=== PATIENT | female | born 1955 | race Two or more races ===

== ENCOUNTER → 2016-10-13 | Outpatient (CLI) | payer MEDICARE, OTHER | LOC: WI 13:40 | PROVIDERS: ATTEND Internal Medicine Medical Oncology | DX: C50.912 Malignant neoplasm of unspecified site of left female breast (principal) | CPT/HCPCS: G0279; G0204; 77062; 77066 ==

== ENCOUNTER → 2016-10-21 | Outpatient (CLI) | payer MEDICARE, OTHER | LOC: WI 09:49 | PROVIDERS: ATTEND Internal Medicine Medical Oncology | DX: R92.2 Inconclusive mammogram (principal); N63 Unspecified lump in breast | CPT/HCPCS: 76642 ==

== ENCOUNTER → 2016-12-03 | Outpatient (CLI) | payer MEDICARE, OTHER ==
--- NOTE | 2016-12-08 09:08 | RADIOLOGY REPORT (SQ) ---
EXAM DESCRIPTION: MRI BREAST BILAT W AND/OR WO COMPLETED DATE/TIME: 12/03/2016 3:23 pm REASON FOR STUDY: ABNORMAL MAMMO R92.8 OTH ABN AND INCONCLUSIVE FINDINGS ON DX IMAGING OF ANI COMPARISON: Breast ultrasound 10/21/2016, 09/28/2012 Diagnostic tomosynthesis 10/13/2016 Mammograms 10/08/2015, 04/02/2014, 03/26/2013, 10/03/2012, 09/28/2012, 09/19/2012 PET-CT 01/17/2015 PATHOLOGIC CORRELATION: Prior stereotactic biopsy 10/03/2012 yielded a diagnosis of ductal carcinoma in situ and invasive ductal carcinoma CONTRAST TYPE AND DOSE: Unable to receive contrast due to renal insufficiency RENAL FUNCTION: Unable to receive contrast due to renal insufficiency TECHNIQUE: MR imaging performed with a dedicated breast coil. Pre contrast T1 and T2 weighted images . Pre contrast and post contrast enhanced T1 weighted images with fat saturation. Subtraction images, 3D thick and thin MIPS, and kinetic analysis performed on an independent workstat ion. ([employer] workstation) Magnet strength: 1.5 T LIMITATIONS: Unable to give contrast due to renal insufficiency FINDINGS: BREAST DENSITY: b. There are scattered areas of fibroglandular density. BACKGROUND PARENCHYMAL ENHANCEMENT:Not applicable RIGHT BREAST: No gross masses. CHEST WALL: Normal tissue planes. No abnormal internal mammary nodes. AXILLA: Normal axillary and retro-pectoral nodes. LEFT BREAST:In the left breast 7 cm from the nipple laterally, a small nodule is present, soft tissue signal on T1, bright on T2. This may represent a small fibroadenoma or intramammary lymph node, sue sures 6 mm in diameter and correlates with ultrasound 10/21/2016 and tomosynthesis exam 10/13/2016. By ultrasound, tomosynthesis, and MRI, this is a probably benign finding and six-month follow-up diagnos tic mammograms and ultrasound are recommended. Patient has postsurgical changes in the upper inner quadrant of the left breast, with punctate ferrom agnetic artifact and bandlike scarring which is similar compared to prior mammograms. CHEST WALL: Normal tissue planes. No abnormal internal mammary nodes. AXILLA: Normal axillary and retro-pectoral nodes. OTHER:No identified liver, bone, or lung lesions. No other significant incidental findings. IMPRESSION: Limited study. Unable to give contrast because of renal insufficiency. Probable small fibroadenoma or intramammary lymph node left breast 7 cm from the nipple laterally for which six-month follow-up diagnostic mammograms and ultrasound are recommended BIRAD: RIGHT BREAST: 1 Negative. LEFT BREAST: 3 Probably benign finding. Initial short-interval follow-up suggested. RECOMMENDATION: RECOMMENDED FOLLOW-UP: Left breast diagnostic mammograms and ultrasound in 6 months TECHNICAL DOCUMENTATION: JOB ID: [id number] [employer]- All Rights Reserved
== END ==
LOC: RAD 14:05
PROVIDERS: ATTEND Internal Medicine Medical Oncology
DX: R92.8 Other abnormal and inconclusive findings on diagnostic imaging of breast (principal)
CPT/HCPCS: 77059; C8906

== ENCOUNTER → 2017-01-06 | Outpatient (CLI) | payer MEDICARE, OTHER ==
--- NOTE | 2017-01-06 14:08 | RADIOLOGY REPORT (SQ) ---
EXAM DESCRIPTION: KUB COMPLETED DATE/TIME: 01/06/2017 1:50 pm REASON FOR STUDY: CHRONIC KIDNEY DISEASE, STAGE 5,UNSPEC ABDOMINAL PAIN N18.5 CHRONIC KIDNEY DISEAS E, STAGE 5 R10.9 UNSPECIFIED ABDOMINAL PAIN COMPARISON: PET-CT 01/17/[address] 03/16/2013 NUMBER OF VIEWS: One view. TECHNIQUE: Supine radiographic image of the abdomen acquired. LIMITATIONS: None. FINDINGS: BOWEL GAS PATTERN: Normal bowel gas pattern. No dilated loops. CALCIFICATIONS: No suspicious calcifications. SOFT TISSUES: No gross mass or suggestion of organomegaly. HARDWARE: Peritoneal dialysis catheter tip is coiled in the pelvic cul-de-sac BONES: No acute fracture. No worrisome bone lesions. OTHER: No other significant finding. IMPRESSION: NO RADIOGRAPHIC EVIDENCE FOR ACUTE ABDOMINAL DISEASE. TECHNICAL DOCUMENTATION: JOB ID: [id number] [employer]- All Rights Reserved
== END ==
LOC: OD 13:36
PROVIDERS: ATTEND Internal Medicine Nephrology
DX: N18.5 Chronic kidney disease, stage 5 (principal); R10.9 Unspecified abdominal pain
CPT/HCPCS: 74000

== ENCOUNTER 2017-01-18 05:35 | Day surgery (SDC) | payer MEDICARE, OTHER ==
[2017-01-18] MEDS ORDERED: BUPIVACAINE HCL 0.25 % INJ/PF (2.5 MG/1 ML) 30 ML VIAL ONE (06:29)
[2017-01-18] MEDS ORDERED: LIDOCAINE 0.5% INJ-PF (5 MG/ML) 50 ML SDV ONE (06:29)
[2017-01-18] MEDS ORDERED: BACITRACIN INJ 50,000 UNIT VIAL ONE (06:29)
[2017-01-18 06:41] LABS: HEMATOCRIT 30.2 % (36.0-47.0); HEMOGLOBIN 10.1 g/dL (12.0-15.5); HGB HCT DIFFERENCE 0.1; MEAN CORPUSCULAR HEMOGLOBIN 32.8 pg (27.0-33.4); MEAN CORPUSCULAR HGB CONC 33.4 g/dL (32.0-36.0); MEAN CORPUSCULAR VOLUME 98 fl (80-97); RED BLOOD COUNT 3.08 10^6/uL (3.72-5.28); RED CELL DISTRIBUTION WIDTH 17.5 % (11.5-14.0); WHITE BLOOD COUNT 7.3 10^3/uL (4.0-10.5)
[2017-01-18 06:51] LABS: ANION GAP 9 (5-19); BLOOD UREA NITROGEN 43 mg/dL (7-20); CALCIUM 9.1 mg/dL (8.4-10.2); CARBON DIOXIDE 24 mmol/L (22-30); CHLORIDE 107 mmol/L (98-107); CREATININE RESULT 6.31 mg/dL (0.52-1.25); GLUCOSE 112 mg/dL (75-110); POTASSIUM 4.4 mmol/L (3.6-5.0); SODIUM 140.3 mmol/L (137-145)
[2017-01-18] MEDS ORDERED: ALBUTEROL SULFATE 0.083% NEB 2.5 MG/3 ML AMPUL NEB ONE (06:53)
[2017-01-18] MEDS ORDERED: FAMOTIDINE INJ/PF 20 MG/2 ML SDV IV ONE (07:28)
[2017-01-18] MEDS ORDERED: METOCLOPRAMIDE HCL INJ/PF 10 MG/2 ML SDV ONE ×2 (07:28→13:13)
[2017-01-18] MEDS ORDERED: KETAMINE HCL INJ 500 MG/10 ML VIAL ONE (07:41)
[2017-01-18] MEDS ORDERED: FENTANYL CITRATE INJ/PF 100 MCG/2 ML AMPUL ONE (07:41)
[2017-01-18] MEDS ORDERED: DEXMEDETOMIDINE INJ 80 MCG/20 ML VIAL IV ONE (07:42)
[2017-01-18] MEDS ORDERED: MIDAZOLAM 2 MG/2 ML INJ ONE (07:42)
[2017-01-18] MEDS ORDERED: PROPOFOL INJ 200 MG/20 ML VIAL IV ONE (07:42)
--- NOTE | 2017-01-18 07:50 | EKG REPORT ---
SEVERITY:- NORMAL ECG - SINUS RHYTHM : Confirmed by: Everardo Moyer MD 18-Jan-2017 07:49:54
--- NOTE | 2017-01-18 07:51 | PDOC H&P ---
General Chief Complaint: This patient is about to undergo hemodialysis and is referred across for insertion of a permacatheter. - Diagnosis (1) End stage renal disease Is this a Current Diagnosis?: Yes (2) History of left breast cancer Is this a Current Diagnosis?: Yes (3) Asthma Is this a Current Diagnosis?: Yes (4) Hypertension Is this a Current Diagnosis?: Yes - Current Medications/Allergies Home Medications: Duloxetine HCl [Cymbalta] 60 mg PO DAILY 03/28/12 Ferrous Fumarate [Iron] 65 mg PO BID 03/28/12 Fluticasone/Salmeterol [Advair 100-50 Diskus] 1 puff IH DAILY 03/28/12 Montelukast Sodium [Singulair 10 mg Tablet] 10 mg PO DAILY 03/28/12 Omeprazole [Prilosec 20 mg Capsule] 20 mg PO DAILY 03/28/12 Carvedilol [Coreg 25 mg Tablet] 12.5 mg PO BID 06/20/12 Albuterol Sulfate 1 IH DAILY 10/25/12 Amlodipine Besylate [Norvasc 10 mg Tablet] 10 mg PO DAILY 10/25/12 Cholecalciferol (Vitamin D3) [Vitamin D3 50,000 unit Capsule] 50,000 unit PO SA 10/25/12 Furosemide [Lasix 20 mg Tablet] 40 mg PO QAM 11/01/12 Sevelamer Carbonate [Renvela] 800 mg PO TID 12/13/12 Atorvastatin Calcium [Lipitor 40 mg Tablet] 40 mg PO QHS 03/08/13 Allergies/Adverse Reactions: No Known Allergies Allergy (Unverified 03/28/12 14:19) Past Medical History Cardiac Medical History: Reports: Hypertension - CONTROLLED WITH MEDS Denies: Coronary Artery Disease, Myocardial Infarction Pulmonary Medical History: Reports: Asthma Denies: Bronchitis, Chronic Obstructive Pulmonary Disease (COPD), Pneumonia Neurological Medical History: Denies: Seizures GI Medical History: Denies: Hepatitis, Hiatal Hernia Musculoskeltal Medical History: Denies: Arthritis Hematology: Reports: Anemia Denies: Sickle Cell Disease Past Surgical History Past Surgical History: Reports: Hysterectomy Denies: Amputation, Mastectomy, Pacemaker Family History Parental Family History Reviewed: No Children Family History Reviewed: No Sibling(s) Family History Reviewed.: No Social History Smoking Status: Unknown if Ever Smoked Physical Exam Vital Signs: Temp Pulse Resp BP Pulse Ox 98.0 F 82 14 130/72 H 97 01/18/17 06:39 01/18/17 06:39 01/18/17 06:39 01/18/17 06:39 01/18/17 06:39 Intake & Output 01/17/17 01/18/17 01/19/17 06:59 06:59 06:59 Intake Total 0 Balance 0 Weight 90.72 kg Additional comments: Constitutional: Well-developed well-nourished lady, moderately increased body mass index. No apparent acute distress. Eyes: Mucous membranes pale and moist, pupils equal and reactive to light. Conjunctiva normal. Cornea normal. ENT: Hearing grossly normal. External pinna normal to inspection. Teeth mostly intact. Tongue normal to inspection. Chest: Right-sided Port-A-Cath noted. Cardiac: Heart sounds 1 and 2 normal, no murmurs. Respiratory breath sounds are present bilaterally, normal. Normal respiratory effort. Skin: Normal to inspection. No ulcers, normal turgor. Psychiatric: Judgment, memory, insight seem normal. Mood is pleasant and appropriate. Extremities: Upper extremities show normal range of movement. Pulses present noted to the radial arteries. Capillary refill normal. No cyanosis noted. No muscle wasting noted. Impression/Plan Impression: #1 end-stage renal disease. 2. History of left breast cancer. 3. Hypertension. Plan: In this patient is about to undergo hemodialysis, PermCath is to be inserted. He previously had vein mapping which was unsuccessful. She will need to have a fistula planned under inserted as soon as his practicable. He does have a port on the right side previously for chemotherapy. Its presence will have to be revisited. Presence of 2 ports in the superior vena cava is concerning. The risks, benefits, expected outcome and alternatives of this procedure were discussed with the patient and her . Questions and concerns addressed and they are agreeable.
[2017-01-18] MEDS ORDERED: CEFAZOLIN INJ 1 GM VIAL ONE (08:27)
--- NOTE | 2017-01-18 09:14 | PDOC DISCHARGE SUMMARY ---
Discharge Summary (SDC) - Discharge Final Diagnosis: #1 end-stage renal disease. 2. History of left breast cancer. 3. Hypertension. Date of Surgery: 01/18/17 Discharge Date: 01/18/17 Condition: Fair Treatment or Instructions: Discharge home [after recovery per ASU criteria]. Diet , [renal],as tolerated, when fully awake advance as tolerated. Activities within moderation encouraged. Follow up in my office by appointment in about [1 week]. Call for appointment. Leave wounds [covered], [keep clean and dry, until office visit in 1 week]. Hold of on school/work [until evaluation in office]. May shower [in 48 hrs], [try to keep operated area as dry as possible]. Medications per medication reconciliation sheet, Percocet prescription. Prescriptions: Oxycodone HCl/Acetaminophen [Percocet 5-325 mg Tablet] 1 tab PO ASDIR PRN #7 tab PRN Reason: Respiratory Treatments at Home: Deep Breathing/Coughing Discharge Activity: Activity As Tolerated Report the Following to Your Physician Immediately: Shortness of Breath, Unusual Bleeding
--- NOTE | 2017-01-18 09:18 | Operative Report ---
Operative Report DATE OF SURGERY: 01/18/17 PREOPERATIVE DIAGNOSIS: #1 end-stage renal disease. 2. History of left breast cancer. 3. Hypertension. POSTOPERATIVE DIAGNOSIS: #1 end-stage renal disease. 2. History of left breast cancer. 3. Hypertension. OPERATION: 1. Insertion of PermCath catheter. 2. Ultrasound evaluation of the left internal jugular vein. 3. Angiogram interpretation. SURGEON: CIARA LOCKETT PIPE FITTER FIRE SPRINKLER SYSTEMS: None ANESTHESIA: LMAC TISSUE REMOVED OR ALTERED: Not applicable. COMPLICATIONS: None ESTIMATED BLOOD LOSS: 2 mL. INTRAOPERATIVE FINDINGS: Of a satisfactory left internal jugular vein supports a permacatheter. The place with the tip low in the right atrium. Almost at the inferior vena cava. The right atrium is somewhat small in this patient. Easy egress of blood and ingress of heparinized solution through both ports. Angiogram demonstrated smooth flow of contrast through the right atrium, black backflow into the inferior vena cava and antegrade flow into the right ventricle and pulmonary outflow tract. PROCEDURE: After obtaining informed consent, the patient was taken to the operating room and positioned supine. The left neck and chest were prepared with chlorhexidine and draped out with sterile linen. After the " universal timeout ", in which it was verified that the patient continued to receive antibiotic, the procedure commenced. A steriley sheathed ultrasound probe was used to evaluate the left internal jugular vein. Local anesthesia was infiltrated adjacent to the probe. Access into the right internal jugular vein was obtained using a micropuncture needle, followed by micropuncture wire and then a micropuncture catheter. This was followed by introduction of a 0.035 guidewire the tip of which was placed down into the inferior vena cava . A 23 cm long split catheter was now positioned over the chest and an exit site marked and locally anesthetized ,the catheter was placed between the 2 incisions. Proximally, the catheter was now positioned using a peel-away sheath, after dilation. Easy ingress of heparinized solution and egress of blood obtained through both ports. A completion angiogram was done by injecting contrast. The findings were as dictated. The neck incision was now closed using interrupted 3-0 PDS to the subcutaneous tissues, the catheter was anchored at the exit site using 3-0 PDS. A Biopatch device was now placed adjacent to the catheter. Dressings were applied and the procedure concluded. Exposure time: 0.7 minutes. Exposure: 10.6 mcg per centimeters squared. Contrast amount: 10 mL of [id number]-[id number] low osmolality. Copies of the dictated operative report for Dr. Ciara Adams MD.concluded. Copies of the dictated operative report for Dr. Ciara Adams MD.
--- NOTE | 2017-01-18 09:25 | RADIOLOGY REPORT (SQ) ---
EXAM DESCRIPTION: CHEST SINGLE VIEW COMPLETED DATE/TIME: 01/18/2017 9:12 am REASON FOR STUDY: post op pacu COMPARISON: 01/08/2014. EXAM PARAMETERS: NUMBER OF VIEWS: One view. TECHNIQUE: Single frontal radiographic view of the chest acquired. RADIATION DOSE: NA LIMITATIONS: None. FINDINGS: LUNGS AND PLEURA: No opacities, masses or pneumothorax. No pleural effusion. MEDIASTINUM AND HILAR STRUCTURES: No masses. Contour normal. HEART AND VASCULAR STRUCTURES: Heart normal in size. Normal vasculature. BONES: No acute findings. HARDWARE: Vascular access port unchanged. New central line on the left side with the tip at the leve l of the right atrium. OTHER: No other significant finding. IMPRESSION: HARDWARE DESCRIBED. OTHERWISE NO ACUTE RADIOGRAPHIC FINDING IN THE CHEST. TECHNICAL DOCUMENTATION: JOB ID: [id number]
[2017-01-18 10:47] VITALS: BP 141/75
--- NOTE | 2017-01-18 13:06 | RADIOLOGY REPORT (SQ) ---
EXAM DESCRIPTION: FLUORO/CV PLACEMENT COMPLETED DATE/TIME: 01/18/2017 12:55 pm REASON FOR STUDY: PERMCATH PLCMT LEFT SIDE ASSISTED WITH FLUORO IN OR N18.6 END STAGE RENAL DISEASE Z79.01 SENIOR LIVING (CURRENT) USE OF ANTICOAGULANTS COMPARISON: None. FLUOROSCOPY TIME: Total fluoroscopy time was 0.7 minutes 4 images saved to PACS. TECHNIQUE: Intra-operative images acquired during surgical procedure to evaluate progress. NUMBER OF IMAGES: 4 LIMITATIONS: None. FINDINGS: Fluoroscopy was provided for intraoperative procedure. Please refer to the operative repo rt for further discussion. IMPRESSION: IMAGE(S) OBTAINED DURING PROCEDURE. COMMENT: Quality ID [id number]: Final reports for procedures using fluoroscopy that document radiation exp osure indices, or exposure time and number of fluorographic images (if radiation exposure indices are not available) Please consult full operative report of the attending physician for description of the procedure. TECHNICAL DOCUMENTATION: JOB ID: [id number] [employer]- All Rights Reserved
[2017-01-18] MEDS ORDERED: ONDANSETRON HCL INJ/PF 4 MG/2 ML SDV ONE (13:13)
[2017-01-18] MEDS ORDERED: LIDOCAINE 2% INJ-PF (20 MG/ML) 10 ML AMPUL ONE (13:13)
[2017-01-18] MEDS ORDERED: GLYCOPYRROLATE INJ 0.4 MG/2 ML VIAL ONE (13:13)
[2017-01-18] MEDS ORDERED: PHENYLEPHRINE HCL INJ/PF 10 MG/1 ML SDV ONE (13:13)
== END 2017-01-18 10:45 | disposition home or self-care (01) ==
LOC: OROUT 05:35
PROVIDERS: ATTEND Surgery
PROC: 05HN33Z Insertion of Infusion Device into Left Internal Jugular Vein, Percutaneous Approach (ICD-10-PCS; principal; 2017-01-18 07:30)
DX: N18.6 End stage renal disease (principal); Z79.899 Other long term (current) drug therapy; I12.0 Hypertensive chronic kidney disease with stage 5 chronic kidney disease or end stage renal disease; J45.909 Unspecified asthma, uncomplicated; K21.9 Gastro-esophageal reflux disease without esophagitis; Z79.51 Long term (current) use of inhaled steroids; Z99.2 Dependence on renal dialysis; Z85.3 Personal history of malignant neoplasm of breast
CPT/HCPCS: 36558; 36415; 85027; 80048; 71010; 77001; 93005; 93010; C1752; Q9967; J2250; J3490 ×5; J0690; J3010; J2765; J2370; J2405; J2704; S0028; A9270; J1644; 532

== ENCOUNTER → 2017-10-25 | Outpatient (CLI) | payer MEDICARE, OTHER ==
--- NOTE | 2017-10-25 13:14 | WOMENS IMAGING REPORT ---
EXAM DESCRIPTION: 3D SCREENING MAMMO BILAT COMPLETED DATE/TIME: 10/25/2017 12:03 pm REASON FOR STUDY: SCREENING MAMMO Z85.3 PERSONAL HISTORY OF MALIGNANT NEOPLASM OF BREAST COMPARISON: 2014 to 2016 TECHNIQUE: Standard craniocaudal and mediolateral oblique views of each breast recorded using digita l acquisition and breast tomosynthesis. LIMITATIONS: None. FINDINGS: Findings present which are benign by mammographic criteria. No suspicious masses, calcifi cations or architectural distortion. Pertinent benign findings: Treatment changes on the left. Read with the assistance of CAD. .[facility] - R2 Cenova Version 1.3 .[facility] Imaging - R2 Cenova Version 1.3 .[facility] Imaging - R2 Cenova Version 2.4 .[facility] - R2 Cenova Version 2.4 .[facility] - R2 Telephone Triage Nurse Version 9.2 Benign mammographic findings may include one or more of the following: Smooth masses, popcorn/rim/co arse calcifications, asymmetries, post-procedure changes, and lesions with long-standing stability. IMPRESSION: BENIGN MAMMOGRAPHIC FINDINGS. BIRADS 2 BREAST DENSITY: b. There are scattered areas of fibroglandular density. BIRAD: 2 BENIGN FINDING(S) RECOMMENDATION: RECOMMENDATION: ROUTINE SCREENING COMMENT: The patient has been notified of the results by letter per SA requirements. Additional no tification policies are in place for contacting patient with suspicious or incomplete findings. Quality ID #[id number]: The [employer] recommends an annual screening mammogram for women aged 40 years or over. This facility utilizes a reminder system to ensure that all patients receive reminder letters, and/or direct phone calls for appointments. This includes reminders for routine scr eening mammograms, diagnostic mammograms, or other Breast Imaging Interventions when appropriate. Th is patient will be placed in the appropriate reminder system. The [employer] (ACR) has developed recommendations for screening MRI of the breast s in certain patient populations, to be used in conjunction with mammography. Breast MRI surveillanc e may be appropriate for women with more than 20% lifetime risk of developing breast cancer as deter mined by genetic testing, significant family history of the disease, or history of mantle radiation f or Hodgkins Disease. ACR Practice Guidelines 2008. DBT Technology DBT is a type of tomographic mammography. With conventional mammography, overlapping breast tissue ma y make lesions difficult to detect, even with good compression. DBT uses an x-ray tube that rotates a round the breast, taking images at different angles. These images are then combined to create thin sl ices of the breast that the radiologist can view as a 3D reconstruction. The Hologic unit can perform full-field digital mammograms (2D imaging); or DBT (3D imaging); or both, in a combination mode that quickly performs both the mammogram and the tomosynthesis scan while the breast is still compressed. PQRS 6045F: Fluoroscopic imaging is not utilized for breast tomosynthesis. TECHNICAL DOCUMENTATION: FINDING NUMBER: (1) ASSESSMENT: (1) JOB ID: [id number] [employer]- All Rights Reserved Reading location - IP/workstation name: [email or web address]
== END ==
LOC: WI 11:30
PROVIDERS: ATTEND Internal Medicine Medical Oncology
DX: Z12.31 Encounter for screening mammogram for malignant neoplasm of breast (principal)
CPT/HCPCS: 77063; 77067

== ENCOUNTER 2018-02-06 13:38 | Emergency (ER) | payer MEDICARE ==
[2018-02-06] MEDS ORDERED: ACETAMINOPHEN 325 MG TABLET PO ONE (14:27)
--- NOTE | 2018-02-06 14:38 | ER Document Report ---
ED Extremity Problem, Lower - General Chief Complaint: Knee Injury Stated Complaint: FALL/RIGHT KNEE PAIN Time Seen by Provider: 02/06/18 13:53 Mode of Arrival: Wheelchair Information source: Patient Notes: 62-year-old female presents to ED for complaint of right knee pain since last night. She states she was in the kitchen doing dishes when she did not realize that was water on the floor she slipped twisting her knee and then landing on her knee. She states she has been having trouble walking on this leg since then. She is alert and oriented respirations regular and unlabored speak in full sentences but is not able to walk on this leg. TRAVEL OUTSIDE OF THE [place] IN LAST 30 DAYS: No - HPI Patient complains to provider of: Injury, Pain, Swelling Location: Knee - Right Occurred: Yesterday Where: Home, Indoors Onset/Duration: Sudden Quality of pain: Sharp, Throbbing Severity: Moderate Pain Level: 4 Context: Fell Recent injury: Yes Associated symptoms: Painful ambulation Exacerbated by: Hanging down, Movement, Walking Relieved by: Elevation, Ice, Rest - Related Data Allergies/Adverse Reactions: No Known Allergies Allergy (Verified 02/06/18 13:38) Past Medical History - General Information source: Patient - Social History Smoking Status: Former Smoker Cigarette use (# per day): No Chew tobacco use (# tins/day): No Smoking Education Provided: No Frequency of alcohol use: None Drug Abuse: None Lives with: Family Family History: Reviewed & Not Pertinent Patient has suicidal ideation: No Patient has homicidal ideation: No - Past Medical History Cardiac Medical History: Reports: Hx Hypercholesterolemia, Hx Hypertension - CONTROLLED WITH MEDS Pulmonary Medical History: Reports: Hx Asthma EENT Medical History: Reports: None Neurological Medical History: Reports: None Renal/ Medical History: Reports: Hx End Stage Renal Disease, Hx Peritoneal Dialysis - every night Malignancy Medical History: Reports: Hx Breast Cancer GI Medical History: Reports: None Musculoskeletal Medical History: Reports Hx Arthritis, Reports Hx Musculoskeletal Trauma Skin Medical History: Reports None Psychiatric Medical History: Reports: Hx Anxiety Traumatic Medical History: Reports: None Past Surgical History: Reports: Hx Abdominal Surgery - Peritoneal dialysis, Hx Hysterectomy, Hx Lumpectomy - left - Immunizations Hx Diphtheria, Pertussis, Tetanus Vaccination: Yes Hx Pneumococcal Vaccination: 05/30/13 Review of Systems - Review of Systems Constitutional: No symptoms reported EENT: No symptoms reported Cardiovascular: No symptoms reported Respiratory: No symptoms reported Gastrointestinal: No symptoms reported Genitourinary: No symptoms reported Female Genitourinary: No symptoms reported Musculoskeletal: Joint pain - right knee, Joint swelling - right knee Skin: No symptoms reported Hematologic/Lymphatic: No symptoms reported Neurological/Psychological: No symptoms reported -: Yes All other systems reviewed and negative Physical Exam - Vital signs Vitals: Temp Pulse Resp BP Pulse Ox 97.9 F 83 14 132/59 H 98 02/06/18 13:47 02/06/18 13:47 02/06/18 13:47 02/06/18 13:47 02/06/18 13:47 Interpretation: Normal - General General appearance: Appears well, Alert - HEENT Head: Normocephalic, Atraumatic Eyes: Normal Pupils: PERRL - Respiratory Respiratory status: No respiratory distress Chest status: Nontender Breath sounds: Normal Chest palpation: Normal - Cardiovascular Rhythm: Regular Heart sounds: Normal auscultation Murmur: No - Abdominal Inspection: Normal Distension: No distension Bowel sounds: Normal Tenderness: Nontender Organomegaly: No organomegaly - Back Back: Normal, Nontender - Extremities General upper extremity: Normal inspection, Nontender, Normal color, Normal ROM , Normal temperature General lower extremity: Normal temperature. No: Rowdy's sign Knee: Tender, Ecchymosis, Joint effusion, Pain with ROM, Patellar tendon intact , Tender joint line. No: Abrasion, Deformity, Dislocation, Drawer's test instability, Instability, Laceration, Laxity with valgus stress, Laxity with varus stress, Popliteal fossa tender - Neurological Neuro grossly intact: Yes Cognition: Normal Orientation: AAOx4 Radha Coma Scale Eye Opening: Spontaneous Radha Coma Scale Verbal: Oriented [place] Coma Scale Motor: Obeys Commands Radha Coma Scale Total: 15 Speech: Normal Motor strength normal: LUE, RUE, LLE, RLE Sensory: Normal - Psychological Associated symptoms: Normal affect, Normal mood - Skin Skin Temperature: Warm Skin Moisture: Dry Skin Color: Normal Course - Re-evaluation Re-evalutation: 02/06/18 21:20 X-rays discussed with patient and written report of x-rays given the patient. Patient did not want a knee immobilizer on her knee. She elected to have an Cali wrap applied instead. She was instructed on use of crutches and discharged home to follow-up with orthopedics. - Vital Signs Vital signs: Temp Pulse Resp BP Pulse Ox 98.1 F 84 14 124/70 98 02/06/18 16:13 02/06/18 16:13 02/06/18 16:13 02/06/18 16:13 02/06/18 16:13 - Diagnostic Test Radiology reviewed: Image reviewed, Reports reviewed Procedures - Immobilization Right Knee Time completed: 15:50 Immobilizer type: Cali wrap Performed by: PCT Post-Proc Neuro Vasc Exam: Normal Alignment checked and good: Yes Discharge - Discharge Clinical Impression: Right knee injury Qualifiers: Encounter type: initial encounter Qualified Code(s): S89.91XA - Unspecified injury of right lower leg, initial encounter Condition: Stable Disposition: HOME, SELF-CARE Additional Instructions: SUSPECTED INTERNAL KNEE INJURY: The examiner of your injured knee suspects an internal injury to the cartilage or internal ligaments. This must be further investigated by an data management specialist. The knee should be protected, ice packed, and elevated while awaiting your follow-up exam by the orthopedist. If there is severe swelling, severe pain, or any new symptoms while awaiting your exam, you should call the orthopedist. (If he/she is unavailable, call us or return for re-examination.) CALI WRAP: A compression dressing (cali wrap) has been placed. This helps hold the area still. It limits swelling and internal bleeding. The wrap should be comfortably snug -- not tight. You should feel a sense of pressure, but not severe pain under the wrap. Unless the physician tells you otherwise, you can adjust the wrap for comfort. If the wrap causes symptoms suggesting it's too tight -- uncomfortable pressure, swelling or discoloration beyond the wrap, numbness, or severe pain - - you must loosen the wrap. If these symptoms don't resolve promptly, return for re-evaluation. USE OF CRUTCHES: The doctor has recommended that you not bear weight at this time. You will need to use crutches. Adjust the crutches so the tops come to about two inches under the armpit while you are standing upright. Use your hands -- not your armpits -- to support your weight. To get into a chair, support yourself with one crutch on the injured side. Hold the chair with the other hand, then lower yourself while putting all your weight on the good leg. Going up stairs is `good leg up, step up, then bring up crutches and bad leg.' Down stairs is `bad leg and crutches down, then bring good leg down.' If you develop numbness or swelling in an arm or hand, you are using the crutches incorrectly. Return if you are having any problems with the crutches. ICE & ELEVATION: Apply ice packs frequently against the painful area. Many different schedules are recommended, such as "20 minutes on, 20 minutes off" or "one hour ice, two hours rest." If you need to work, you may need to go longer between ice treatments. You should plan to have the area ice packed AT LEAST one- fourth of the time. The ice should be applied over the wrap, tape, or splint, or over a layer of cloth -- not directly against the skin. Some ice bags have a built-in cloth and can be put directly on the skin. Your injured part should be elevated as much as possible over the next 48 hours. Try to keep the injury above the level of the heart. Avoid use of the injured area. Elevation and rest will decrease the swelling. ORAL NARCOTIC MEDICATION: You have been given a prescription for pain control. This medication is a narcotic. It's best taken with food, as nausea can result if taken on an empty stomach. Don't operate machinery or drive within six hours of taking this medication. Do not combine this medicine with alcohol, or with any medication which can cause sedation (such as cold tablets or sleeping pills) unless you get permission from the physician. Narcotics tend to cause constipation. If possible, drink plenty of fluids and eat a diet high in fiber and fruits. Please be aware that prescription narcotics also have the potential for abuse. People become addicted to these medications because of the general sense of wellbeing that they induce. This feeling along with a significant reduction in tension, anxiety, and aggression provides a stimulating seductive quality to these drugs. Once your pain is under control, we encourage you to discard your unused narcotics. FOLLOW-UP CARE: If you have been referred to a physician for follow-up care, call the physician s office for an appointment as you were instructed or within the next two days. If you experience worsening or a significant change in your symptoms, notify the physician immediately or return to the Emergency Department at any time for re-evaluation. Prescriptions: Hydrocodone/Acetaminophen [[place] 5-325 mg Tablet] 1 tab PO Q6HP PRN #7 tablet PRN Reason: Forms: Elevated Blood Pressure Referrals: TRAVIS KIRBY MD [Primary Care Provider] - Follow up as needed [facility] [Provider Group] - Follow up as needed
--- NOTE | 2018-02-06 14:50 | RADIOLOGY REPORT (SQ) ---
EXAM DESCRIPTION: KNEE RIGHT 4 VIEWS COMPLETED DATE/TIME: 02/06/2018 2:41 pm REASON FOR STUDY: pain and injury COMPARISON: None. NUMBER OF VIEWS: Five views TECHNIQUE: AP, lateral, and both oblique radiographic images acquired of the right knee. LIMITATIONS: None. FINDINGS: MINERALIZATION: Normal. BONES: No acute fracture or dislocation. No worrisome bone lesions. JOINT: Joint spaces maintained. SOFT TISSUES: Joint fluid noted. OTHER: No other significant finding. IMPRESSION: No acute fractures identified. Joint fluid is noted. TECHNICAL DOCUMENTATION: JOB ID: [id number] [employer]- All Rights Reserved Reading location - IP/workstation name: [email or web address]
[2018-02-06 16:13] VITALS: BP 124/70
== END 2018-02-06 16:13 | disposition home or self-care (01) ==
LOC: ER 13:38
DX: S80.01XA Contusion of right knee, initial encounter (principal); M25.461 Effusion, right knee; W01.0XXA Fall on same level from slipping, tripping and stumbling without subsequent striking against object, initial encounter; Y93.G1 Activity, food preparation and clean up; Y92.000 Kitchen of unspecified non-institutional (private) residence as the place of occurrence of the external cause; J45.909 Unspecified asthma, uncomplicated; I12.0 Hypertensive chronic kidney disease with stage 5 chronic kidney disease or end stage renal disease; N18.6 End stage renal disease; Z99.2 Dependence on renal dialysis; Z85.3 Personal history of malignant neoplasm of breast; Z87.891 Personal history of nicotine dependence
CPT/HCPCS: 99283; 73564; A9270

== ENCOUNTER → 2020-03-07 | Outpatient (CLI) | payer MEDICARE, OTHER ==
--- NOTE | 2020-03-07 15:59 | WOMENS IMAGING REPORT ---
EXAM DESCRIPTION: 3D SCREENING MAMMO BILAT IMAGES COMPLETED DATE/TIME: 03/07/2020 11:46 am REASON FOR STUDY: Z12.31 ENCOUNTER FOR SCREENING MAMMOGRAM FOR MALIGNANT NEOPLASM OF BREAST Z12.31 ENCNTR SCREEN MAMMOGRAM FOR MALIGNANT NEOPLASM OF ANI COMPARISON: 10/25/2017, 10/13/2016, 10/08/2015, 10/03/2014 EXAM PARAMETERS: Standard craniocaudal and mediolateral oblique views of each breast recorded using digital acquisition and breast tomosynthesis. Read with the assistance of CAD. .[facility] - [employer] Version 9.2 LIMITATIONS: None. FINDINGS: Findings present which are benign by mammographic criteria. No suspicious masses, calcific ations or architectural distortion. Pertinent benign findings: Post treatment changes are seen of the left lower inner quadrant. No susp icious findings. Benign mammographic findings may include one or more of the following: Smooth masses, popcorn/rim/coa rse calcifications, asymmetries, post-procedure changes, and lesions with long-standing stability. IMPRESSION: BENIGN MAMMOGRAPHIC FINDINGS. BIRADS 2 BREAST DENSITY: b. There are scattered areas of fibroglandular density. BIRAD: ASSESSMENT: 2 BENIGN FINDING(S) RECOMMENDATION: ROUTINE SCREENING COMMENT: The patient has been notified of the results by letter per SA requirements. Additional no tification policies are in place for contacting patient with suspicious or incomplete findings. Quality ID #[id number]: The [employer] recommends an annual screening mammogram for women aged 40 years or over. This facility utilizes a reminder system to ensure that all patients receive reminder letters, and/or direct phone calls for appointments. This includes reminders for routine scr eening mammograms, diagnostic mammograms, or other Breast Imaging Interventions when appropriate. Th is patient will be placed in the appropriate reminder system. TECHNICAL DOCUMENTATION: FINDING NUMBER: (1) ASSESSMENT: (1) JOB ID: [id number] [employer]- All Rights Reserved Reading location - IP/workstation name: [email or web address]
== END ==
LOC: WI 10:58
PROVIDERS: ATTEND Physician Assistant
DX: Z12.31 Encounter for screening mammogram for malignant neoplasm of breast (principal)
CPT/HCPCS: 77063; 77067